=== PATIENT | male | born 1985 ===

== ENCOUNTER 2019-06-23 18:16 | Outpatient (CLI) | payer SELFPAY ==
[2019-06-23 18:30] VITALS: BP 120/80; PULSE 70; RESP 16; TEMP 36.8; O2SAT 98; BMI 25.2
--- NOTE | 2019-06-23 18:36 | XR_ITS ---
WS: [id number] RIGHT HAND: 3 VIEW(S) TECHNIQUE: PA, oblique and lateral. HISTORY: smashed R first finger COMPARISON: None available. Nondisplaced oblique fracture through the terminal tuft of the second finger. There is a moderate kang unt of adjacent soft tissue edema and soft tissue injury. No additional fractures. XR/XR hand RT min 3V* [id number] IMPRESSION: Nondisplaced oblique fracture terminal tuft second finger.
--- NOTE | 2019-06-23 19:06 | W.ED.EXTPRO ---
HPI - Extremity Problem General: Chief complaint: Extremity Injury, Upper Stated complaint: FINGER INJURY Time Seen by Provider: 06/23/19 18:43 History of Present Illness: HPI Narrative: Patient states he caught his finger between the logs today. Now complains of pain and bleeding. MD Complaint: extremity pain Onset (ago): hour(s) Pain Consistency: constant Location: right and upper extremity Severity scale (1-10): 4 Quality: aching Relieving factors: nothing Associated symptoms: Deny chest pain, fever(s) or rash Review of Systems Const: Denies: fever, chills or body aches Eyes: Denies: change in vision or blurry vision ENMT: Denies: throat pain or nasal congestion Card: Denies: chest pain or shortness of breath on exertion Resp: Denies: shortness of breath, productive cough or non-productive cough GI: Denies: abdominal pain, nausea or vomiting : Denies: difficulty urinating Musc: Reports: extremity pain (Right index finger) Skin/Breast: Denies: rash Neuro: Denies: headache Psych: Denies: anxiety or depression Raoul/Lymph: Denies: easy bruising PFSH ED PFSH: Statuses (acute, chronic, etc) shown below reflect problem list status as previously entered and may not be historically accurate Social History Smoking and tobacco status: current every day smoker Physical Exam Const: COMMON NORMALS: no apparent distress, average body habitus and oriented x3 HENMT: COMMON NORMALS: normocephalic HEAD & SCALP: normal to inspection and normocephalic FACE & SINUS: normal facial exam Eye: COMMON NORMALS: conjunctivae normal GENERAL EYE: normal appearance of both eyes CONJUNCTIVA: Yes conjunctivae normal Neck/C-Spine: COMMON NORMALS: no JVD Chest: COMMONS NORMALS: inspection of chest normal Resp: COMMON NORMALS: normal respiratory effort and clear to auscultation bilaterally AUSCULTATION: clear to auscultation bilaterally Cardio: COMMON NORMALS: no JVD, regular rate and regular rhythm RATE: regular rate RHYTHM: regular rhythm GI: COMMON NORMALS: normal to inspection, nondistended, normoactive bowel sounds Extremity: COMMON NORMALS: normal to inspection and full ROM RIGHT UPPER EXTREMITY: Yes hand & digits (Right index finger with dried blood around the nail the nail appeared loose from the finger patient does have pain obviously smashed finger.) Neuro: COMMON NORMALS: oriented x3 Course Vital Signs: Vital signs: Vital Signs Temperature 98.3 F 06/23/19 18:30 Pulse Rate 70 06/23/19 18:30 Respiratory Rate 16 06/23/19 18:30 Blood Pressure 120/80 06/23/19 18:30 Pulse Oximetry 98 06/23/19 18:30 MDM - Extremity (Nontraumatic) MDM Narrative: Medical decision making narrative: Patient does not desire any suturing Imaging Data^: Xray Ortho: My impression: Displaced fracture of tuft of right index finger Discharge Plan Discharge Patient Disposition: Home, Self-Care Clinical Impression: Closed fracture of tuft of distal phalanx of finger Condition: Stable Prescriptions: New tramadol 50 mg tablet 50 mg PO Q6H PRN (Reason: pain) Qty: 14 RF: 0 Discharge Diet: Usual diet Discharge Activity: Increase activity as tolerated Patient Instructions: Finger Fracture (ED) Activity Restrictions/Additional Instructions: Follow-up with medical provider as directed. Take medications as prescribed. Return to the ER are your medical provider if condition worsens. Read and understand discharge instructions. Wear splint until finger is healed up. Coding Level of Care Code ED Marine Operations Coordinator for Jodi Monsalve Exam Problem Focused
--- NOTE | 2019-06-23 21:07 | PC.NURSE ---
I did not see this patient, I completed registration for ROGER due to her being unable to access chart of discharged patient
--- NOTE | 2019-06-24 10:11 | DCPLANNER ---
customer development manager was asked to schedule a follow up appointment for patient with ortho. customer development manager called the ortho clinic, spoke with Pat, gave clinic patients information. customer development manager was told that patients information would be printed and reviewed. Clinic will call business case analyst and patient with appointment information.
[2019-06-24] MEDS: tetanus-diphtheria tox (adult) 0.5 mL SDV IM (17:59)
--- NOTE | 2019-06-30 12:48 | DCPLANNER ---
Patient had appointment scheduled for 06.24.[address] Cruz at ortho, patient did attend the appointment.
== END 2019-06-24 17:17 | disposition home or self-care (01) ==
PROVIDERS: Emergency Provider Emergency Medicine; Visit Provider Family Medicine
DX: S62.630A Displaced fracture of distal phalanx of right index finger, initial encounter for closed fracture (principal); W23.1XXA Caught, crushed, jammed, or pinched between stationary objects, initial encounter; F17.210 Nicotine dependence, cigarettes, uncomplicated; Z23 Encounter for immunization
CPT/HCPCS: 73130; 90472; 90714; 99281